=== PATIENT | male | born 1985 | race Caucasian/White ===

== ENCOUNTER 2020-06-03 08:31 | Emergency (ER) | payer OTHER ==
[~2020-06-03] VITALS: Ht 177.8 cm; Wt 91.7 kg
[2020-06-03] MEDS ORDERED: PROPARACAINE OPHTH 0.5%, 15ML ONE ×2 (08:45→09:04)
[2020-06-03] MEDS ORDERED: FLUORESCEIN OPHTHALMIC 1 MG STRIP ONE ×2 (09:05→09:15)
[2020-06-03] MEDS ORDERED: MOXIFLOXACIN OPHTH O.5%, 3ML RIGHTEYE STA (09:31)
--- NOTE | 2020-06-03 09:45 | NUR ---
THIS IS A 35 YO M W/ C/O RT EYE PAIN SINCE LAST NIGHT. PT REPORTS HX OF CORNEAL ABRASION IN SAME EYE IN JANUARY RESULTING IN EYE IRRITATION SINCE. LAST NIGHT SUDDEN ONSET OF SEVERE PAIN, SWELLING, AND VISION LOSS. PT REPORTS FB SENSATION BUT DOES NOT KNOW WHAT HAS CAUSED THIS. PT RESTING ON CHAIR W/ CALL LIGHT IN REACH AND FAMILY AT BEDSIDE. RESP EVEN AND UNLABORED, NADN.
--- NOTE | 2020-06-03 09:53 | NUR ---
PIV STARTED, LABS DRAWN AND SENT TO LAB.
[2020-06-03] MEDS ORDERED: DIPH,PERTUSS(ACELL),TET VAC/PF 0.5 ML IM-VACC ONE (09:54)
--- NOTE | 2020-06-03 09:58 | NUR ---
MED SULY FROM PHARMACY.
[2020-06-03 09:59] LABS: BASOPHILS % (AUTO) 0 % (0-1); EOSINOPHILS % (AUTO) 1 % (1-7); LYMPHOCYTES % (AUTO) 22 % (22-44); MEAN CORPUSCULAR HEMOGLOBIN 32.9 pg (27.5-34.5); MEAN CORPUSCULAR HGB CONC 34.2 g/dL (33.2-36.2); MEAN PLATELET VOLUME 7.3 fL (7.4-10.4); MONOCYTES % (AUTO) 7 % (2-9); NEUTROPHILS % (AUTO) 71 % (42-75); PLATELET COUNT 266 x10^3/uL (130-400); RED BLOOD COUNT 5.19 x10^6/uL (4.38-5.82)
[2020-06-03] MEDS ORDERED: DIPHTHERIA-TETANUS ADULT 0.5ML IM-VACC ONE (10:00)
[2020-06-03] MEDS ORDERED: FLUORESCEIN OPHTHALMIC 1 MG STRIP EACHEYE ONE (10:00)
[2020-06-03] MEDS ORDERED: PROPARACAINE OPHTH 0.5%, 15ML EACHEYE ONE (10:00)
[2020-06-03 10:03] LABS: MD NO
[2020-06-03 10:10] LABS: ALBUMIN 4.5 g/dL (3.4-5.0); ANION GAP 3 mmol/L (5-15); CALCIUM 9.3 mg/dL (8.5-10.1); CHLORIDE 108 mmol/L (98-107); CREATININE 1.13 mg/dL (0.7-1.3)
--- NOTE | 2020-06-03 10:16 | NUR ---
PT TO CT.
[2020-06-03] MEDS ORDERED: OMNIPAQUE 350 MG/ML, 75ML BOTTLE ONE (10:58)
--- NOTE | 2020-06-03 10:59 | NUR ---
RECEIVED REPORT FROM CIELO KNIGHT. ASSUMING CARE AT THIS TIME. DIRECTOR DATABASE PER AUG. ALL RESULTS ARE BACK AT THIS TIME. CHART UP FOR RECHECK.
[2020-06-03 11:45] VITALS: BP 154/93
== END 2020-06-03 11:47 | disposition home or self-care (01) ==
LOC: ED 09:36
DX: S05.01XA Injury of conjunctiva and corneal abrasion without foreign body, right eye, initial encounter (principal); L03.213 Periorbital cellulitis; R09.89 Other specified symptoms and signs involving the circulatory and respiratory systems; X58.XXXA Exposure to other specified factors, initial encounter; Y93.89 Activity, other specified; Y92.89 Other specified places as the place of occurrence of the external cause; Y99.8 Other external cause status
CPT/HCPCS: 36415; 70481; 80048; 82040; 85025; 90471; 90714; 99285; Q9967